=== PATIENT | female | born 1960 | race American Indian/Alaskan Native ===

== ENCOUNTER 2017-05-17 13:22 | Outpatient (CLI) | payer MEDICARE ==
--- NOTE | 2017-05-17 14:10 | XRay Report ---
XRAY LEFT KNEE 4 VIEWS: 05/17/17 13:22:00 CLINICAL: Knee pain. FINDINGS: Moderate medial joint space narrowing with large osteophytes. Slight widening of the lateral joint space with small osteophytes. Patellofemoral joint osteoarthritis with large osteophytes. Large superior and inferior patellar enthesophytes. No joint effusion. Normal soft tissues. IMPRESSION: Moderate osteoarthritis with greater involvement of the medial joint and patellofemoral joint. Quadriceps and patellar enthesopathy.
== END 2017-05-17 13:23 | disposition home or self-care (01) ==
LOC: SPVIMAG 13:22
PROVIDERS: ATTEND Orthopaedic Surgery
DX: M17.12 Unilateral primary osteoarthritis, left knee (principal); M76.52 Patellar tendinitis, left knee